=== PATIENT | female | born 1950 | race Caucasian/White ===

== ENCOUNTER 2020-05-24 13:53 | Inpatient (IN) | payer MEDICARE, OTHER ==
[~2020-05-24] VITALS: Ht 162.6 cm; Wt 88.0 kg
[~2020-05-24 13:53] MED LIST: ALLOPURINOL100 MG PO; CITALOPRAM HBR20 MG PO; COLCRYS0.6 MG PO; FOSINOPRIL SODI10 MG PO; LEXAPRO10 MG PO; METHYLPREDNISOLO4 M1 PO; SYNTHROID75 MCG PO; TYLENOL # 31 EA PO; ULTRAM50 MG PO
[2020-05-24] MEDS ORDERED: ONDANSETRON HCL INJ 2MG/ML 2ML 2 MG/ML VIAL IV STA (14:18)
[2020-05-24 14:28] LABS: BASOPHILS # (AUTO) 0.1 (0.0-0.1); BASOPHILS % 0.7 % (0.0-1.0); EOSINOPHILS # (AUTO) 0.3 (0.0-0.4); EOSINOPHILS % 4.5 % (0.0-6.0); HEMATOCRIT 43.7 % (34.2-44.1); HEMOGLOBIN 14.3 g/dL (12.0-16.0); LYMPHOCYTES # (AUTO) 2.3 (1.0-3.2); LYMPHOCYTES % 29.5 % (18.0-39.1); MEAN CORPUSCULAR HEMOGLOBIN 29.3 pg (28-32); MEAN CORPUSCULAR HGB CONC 32.7 g/dL (31-35); MEAN CORPUSCULAR VOLUME 89.5 fL (81-99); MONOCYTES # (AUTO) 0.6 (0.2-0.8); MONOCYTES % 7.7 % (4.4-11.3); NEUTROPHILS # (AUTO) 4.4 (2.1-6.9); NEUTROPHILS % 57.2 % (38.7-80.0); PLATELET COUNT 243 x10e3/uL (140-360); RED BLOOD COUNT 4.88 x10e6/uL (3.6-5.1); RED CELL DISTRIBUTION WIDTH 12.8 % (11.7-14.4)
[2020-05-24] MEDS ORDERED: MORPHINE SULFATE INJ 4 MG/ML INJ 1ML IV ONE (14:30)
[2020-05-24] MEDS ORDERED: MORPHINE SULFATE 5 MG/ML VIAL IV ONE (14:30)
--- NOTE | 2020-05-24 14:38 | Emergency Department Note ---
History of Present Illnes History of Present Illness Chief Complaint: Abdominal Complaints History of Present Illness This is a 70 year old female I've to the ED with epigastric and right upper quadrant abdominal pain for several days. Patient states she is having intermittent diarrhea but has not chronically because his metformin. . Chief Complaint Comment C/O EPIGASTRIC PAIN STARTED YESTERDAY SHE LAID ON HER SIDE THE PAIN AWAY THEN IT CAME BACK AGAIN TODAY DENIES N/V C/O DIARRHEA DENIES DYSURIA STATES PAIN FEELS LIKE A KNOT IN HER STOMACH STATES HX OF ANXIETY AND IS ANXIOUS DUE TO PAIN SEEN BY DR ZHENG Historian: Patient Arrival Mode: Car Cardiac Catheterization Technologist Required: No Onset (how long ago): day(s) Radiation: Reports non-radiation Onset quality: gradual Duration (how long): day(s) Timing of current episode: constant Progression: worsening Chronicity: new Exacerbating factors: none Treatments prior to arrival: none Past Medical/Family History Physician Review I have reviewed the patient's past medical and family history. Any updates have been documented here. Past Medical History Recent Fever: No Clinical Suspicion of Infectio: No New/Unexplained Change in Ment: No Past Medical History: Hypertension, Diabetes, Hypothyroidism, Anxiety Other Medical History: DEPRESSION HEP B Other Surgery: BREAST BIOPSY PARATHYROID TONSILLECTOMY Social History Physically hurt or threatened: No Other Last Tetanus: UNK Review of Systems Review of Systems Constitutional: Reports no symptoms EENTM: Reports no symptoms Cardiovascular: Reports no symptoms Respiratory: Reports no symptoms Gastrointestinal: Reports as per HPI, Reports abdominal pain, Reports diarrhea Genitourinary: Reports no symptoms Musculoskeletal: Reports no symptoms Integumentary: Reports no symptoms Neurological: Reports no symptoms Psychological: Reports no symptoms Endocrine: Reports no symptoms Hematological/Lymphatic: Reports no symptoms Physical Exam Related Data Allergies: Coded Allergies: No Known Allergies (Unverified , 05/27/16) Triage Vital Signs Vital Signs Date Time Temp Pulse Resp B/P (MAP) Pulse Ox O2 Delivery O2 Flow Rate FiO2 05/24/20 14:00 98.6 113 20 231/108 100 Room Air Vital signs reviewed: Yes Physical Exam CONSTITUTIONAL Constitutional: Present well-developed, Present well-nourished HENT HENT: Present normocephalic, Present atraumatic, Present oropharynx clear/moist, Present nose normal HENT L/R: Present left ext ear normal, Present right ext ear normal EYES Eyes: Reports PERRL, Reports conjunctivae normal NECK Neck: Present ROM normal PULMONARY Pulmonary: Present effort normal, Present breath sounds normal CARDIOVASCULAR Cardiovascular: Present regular rhythm, Present heart sounds normal, Present capillary refill normal, Present normal rate GASTROINTESTINAL Abdominal: Present soft, Present bowel sounds normal, Present tender GENITOURINARY Genitourinary: Present exam deferred SKIN Skin: Present warm, Present dry MUSCULOSKELETAL Musculoskeletal: Present ROM normal NEUROLOGICAL Neurological: Present alert, Present oriented x 3, Present no gross motor or sensory deficits PSYCHOLOGICAL Psychological: Present mood/affect normal, Present judgement normal Results Laboratory Laboratory Laboratory Tests Test 05/24/20 14:09 Lab results reviewed: Yes Laboratory comments Laboratory Tests Test 05/24/20 14:09 White Blood Count 7.63 x10e3/uL (4.8-10.8) Red Blood Count 4.88 x10e6/uL (3.6-5.1) Hemoglobin 14.3 g/dL (12.0-16.0) Hematocrit 43.7 % (34.2-44.1) Mean Corpuscular Volume 89.5 fL (81-99) Mean Corpuscular Hemoglobin 29.3 pg (28-32) Mean Corpuscular Hemoglobin Concent 32.7 g/dL (31-35) Red Cell Distribution Width 12.8 % (11.7-14.4) Platelet Count 243 x10e3/uL (140-360) Neutrophils (%) (Auto) 57.2 % (38.7-80.0) Lymphocytes (%) (Auto) 29.5 % (18.0-39.1) Monocytes (%) (Auto) 7.7 % (4.4-11.3) Eosinophils (%) (Auto) 4.5 % (0.0-6.0) Basophils (%) (Auto) 0.7 % (0.0-1.0) Neutrophils # (Auto) 4.4 (2.1-6.9) Lymphocytes # (Auto) 2.3 (1.0-3.2) Monocytes # (Auto) 0.6 (0.2-0.8) Eosinophils # (Auto) 0.3 (0.0-0.4) Basophils # (Auto) 0.1 (0.0-0.1) Absolute Immature Granulocyte (auto 0.03 x10e3/uL (0-0.1) Urine Color Yellow (YELLOW) Urine Clarity Clear (CLEAR) Urine pH 5.5 (5 - 7) Urine Specific [place] >=1.030 (1.010-1.025) Urine Protein Negative (NEGATIVE) Urine Glucose (UA) Negative (NEGATIVE) Urine Ketones Trace (NEGATIVE) Urine Blood Negative (NEGATIVE) Urine Nitrite Negative (NEGATIVE) Urine Bilirubin Negative (NEGATIVE) Urine Urobilinogen 0.2 mg/dL (0.2 - 1) Urine Leukocyte Esterase Negative (NEGATIVE) Urine RBC None /HPF (0-5) Urine WBC None /HPF (0-5) Urine Epithelial Cells Many /LPF (NONE) Urine Bacteria Few /HPF (NONE) Sodium Level 141 mmol/L (136-145) Potassium Level 3.7 mmol/L (3.5-5.1) Chloride Level 102 mmol/L (98-107) Carbon Dioxide Level 27 mmol/L (22-29) Anion Gap 15.7 mmol/L (8-16) Blood Urea Nitrogen 14 mg/dL (7-26) Creatinine 1.17 mg/dL (0.57-1.11) Estimat Glomerular Filtration Rate 45 ML/MIN (60-) BUN/Creatinine Ratio 12 (6-25) Glucose Level 189 mg/dL (74-118) Calcium Level 10.1 mg/dL (8.4-10.2) Total Bilirubin 0.4 mg/dL (0.2-1.2) Aspartate Amino Transf (AST/SGOT) 24 IU/L (5-34) Alanine Aminotransferase (ALT/SGPT) 24 IU/L (0-55) Alkaline Phosphatase 76 IU/L (40-150) Creatine Kinase 61 IU/L (29-168) Creatine Kinase MB 1.00 ng/mL (0-5.0) Troponin I 0.021 ng/mL (0-0.300) Total Protein 7.5 g/dL (6.5-8.1) Albumin 4.1 g/dL (3.5-5.0) Globulin 3.4 g/dL (2.3-3.5) Albumin/Globulin Ratio 1.2 (0.8-2.0) Lipase 39 U/L (8-78) Imaging Imaging results reviewed: Yes Impressions IMPRESSION: Anterior herniation of mesenteric fat and a loop of transverse colon into the right thorax. No associated bowel obstruction. Hepatic steatosis. Assessment & Plan Medical Decision Making MDM 70-year-old male arrives to the ED with epigastric and right upper quadrant abdominal pain. CT findings concerning for bowel herniation into the thorax. Dr. Conner from general surgery consult did, patient admitted. Assessment & Plan Final Impression: (1) Hernia Depart Disposition: ADMITTED Last Vital Signs Date Time Temp Pulse Resp B/P (MAP) Pulse Ox O2 Delivery O2 Flow Rate FiO2 05/24/20 14:00 98.6 113 20 231/108 100 Room Air Home Meds Reported Medications Colchicine (COLCRYS) 0.6 Mg Tablet, 0.6 MG PO BID, #30 TAB 02/19/17 Allopurinol (ALLOPURINOL) 100 Mg Tablet, 100 MG PO BID, #30 TAB 02/19/17 Escitalopram Oxalate (LEXAPRO) 10 Mg Tablet, 10 MG PO DAILY, #30 TAB 02/19/17 Levothyroxine Sodium (SYNTHROID) 75 Mcg Tab, 75 MCG PO DAILY, #30 TAB 05/27/16 Fosinopril Sodium (FOSINOPRIL SODIUM) 10 Mg Tablet, 10 MG PO DAILY, #30 TAB 05/27/16 Medications in the ED Morphine Sulfate 4 mg ONCE ONCE IV ; Start 05/24/20 at 14:30; Stop 05/24/20 at 14:31; Status UNV Ondansetron HCl 4 mg NOW STAT IV ; Start 05/24/20 at 14:18; Stop 05/24/20 at 14:24; Status DC Morphine Sulfate 4 mg ONCE ONCE IV ; Start 05/24/20 at 14:30; Stop 05/24/20 at 14:31 SALVADOR ZHENG, May 24, 2020 14:38
[2020-05-24 14:48] LABS: ALBUMIN 4.1 g/dL (3.5-5.0); ALBUMIN/GLOBULIN RATIO 1.2 (0.8-2.0); ANION GAP 15.7 mmol/L (8-16); CALCIUM 10.1 mg/dL (8.4-10.2); CREATININE, SERUM 1.17 mg/dL (0.57-1.11); POTASSIUM 3.7 mmol/L (3.5-5.1)
[2020-05-24] MEDS ORDERED: SODIUM CHLORIDE 0.9% 1000ML 1,000 ML IV STA (15:00)
[2020-05-24 15:52] LABS: CLARITY,URINE CLEAR (CLEAR); COLOR,URINE YELLOW (YELLOW); LEUKOCYTE ESTERASE ,URINE NEGATIVE (NEGATIVE); NITRITE,URINE NEGATIVE (NEGATIVE); PROTEIN,URINE DIPSTICK NEGATIVE (NEGATIVE)
[2020-05-24 15:53] LABS: BILIRUBIN,URINE NEGATIVE (NEGATIVE); KETONES,URINE TRACE (NEGATIVE); URINE UROBILINOGEN 0.2 mg/dL (0.2 - 1)
[2020-05-24 16:03] LABS: BACTERIA,URINE FEW /HPF; EPITHELIAL CELLS,URINE MANY /LPF
--- NOTE | 2020-05-24 16:28 | Diagnostic Imaging Report ---
EXAM: CT Chest, Abdomen and Pelvis WITH intravenous contrast INDICATION: Abdominal pain, chest pain COMPARISON: None. TECHNIQUE: The chest, abdomen and pelvis were scanned utilizing a multidetector helical scanner from the thoracic inlet to the pubic symphysis following administration of IV contrast. Coronal and sagittal reformations were obtained. Scan was performed during portal venous phase. IV CONTRAST: 100cc Isovue 370 ORAL CONTRAST: Water COMPLICATIONS: None RADIATION DOSE: Total DLP: 922 mGy*cm Dose modulation, iterative reconstruction, and/or weight based adjustment of the mA/kV was utilized to reduce the radiation dose to as low as reasonably achievable. FINDINGS: LINES/ TUBES: None. LUNGS AND AIRWAYS: The central airways are patent. No focal consolidation or pulmonary edema. Right middle lobe subsegmental atelectasis. Airways are normal. PLEURA: The pleural spaces are clear. HEART AND MEDIASTINUM: The thyroid gland is normal. No mediastinal, hilar or axillary lymphadenopathy. Scattered calcified mediastinal lymph nodes. The heart is normal in size.. There is no pericardial effusion. There is anterior herniation of mesenteric fat and a loop of transverse colon into the right thorax. HEPATOBILIARY: Hepatic steatosis. No focal liver lesion. No biliary ductal dilation. Unremarkable gallbladder. SPLEEN: No splenomegaly. PANCREAS: No focal masses or ductal dilatation. ADRENALS: No adrenal nodules. KIDNEYS/URETERS: No hydronephrosis or renal calculi. 2.1 cm left upper pole renal cyst. PELVIC ORGANS/BLADDER: Unremarkable. PERITONEUM / RETROPERITONEUM: No free air or fluid. LYMPH NODES: No lymphadenopathy. VESSELS: Unremarkable. GI TRACT: No abnormal bowel thickening. No bowel obstruction. Normal appendix. BONES AND SOFT TISSUES: No acute osseous injury. No suspicious lytic or blastic lesions. Tiny fat-containing ventral abdominal hernia. IMPRESSION: Anterior herniation of mesenteric fat and a loop of transverse colon into the right thorax. No associated bowel obstruction. Hepatic steatosis. Signed by: Ama Wheat MD on 05/24/2020 4:25 PM
[2020-05-24] MEDS ORDERED: SODIUM CHLORIDE 0.9% 50ML 50 ML ONE (17:36)
[2020-05-24] MEDS ORDERED: IOPAMIDOL 370 MG/ML 200 ML INFUS..BTL INJ ONE (17:36)
[2020-05-24] MEDS ORDERED: METFORMIN HCL500 M1 PO (19:21)
[2020-05-24] MEDS ORDERED: CITALOPRAM HBR10 MG PO (19:21)
[2020-05-24 19:37] VITALS: BP 174/109
[2020-05-24 19:38] VITALS: BP 174/109
[2020-05-24] MEDS ORDERED: VITAMIN D PO (21:39)
[2020-05-25] VITALS (8 sets, daily range): BP systolic 158–197; BP diastolic 88–114
--- NOTE | 2020-05-25 12:25 | NUR ---
patient has decided to have the surgery for hernia, informed Dr. Conner and he stated that he would put her on the schedule for tomorrow 05/26/20
--- NOTE | 2020-05-25 13:19 | Consultation ---
DATE OF CONSULTATION: 05/25/2020 CHIEF COMPLAINT: Substernal pain. HISTORY OF PRESENT ILLNESS: The patient is a 70-year-old female with 1-day history of pain in the upper epigastric substernal area with nausea. No vomiting. The patient describes previous episodes of intermittent discomfort in the area associated with nausea and diarrhea. The patient was found to have a diaphragmatic hernia in February 2019 with incarcerated transverse colon. PAST MEDICAL HISTORY: Positive for hypertension, diabetes, morbid obesity, depression, and gout. PAST SURGICAL HISTORY: Positive for parathyroidectomy and breast biopsy. ALLERGIES: SHE HAS NO DRUG ALLERGIES. SOCIAL HABITS: She does not smoke or drink at present time. REVIEW OF SYSTEMS: No chest pain, shortness of breath, cough, or fevers. PHYSICAL EXAMINATION: VITAL SIGNS: Stable. She is afebrile. She is awake, alert, in mild discomfort. HEENT: Sclerae anicteric. NECK: Supple. LUNGS: Clear. HEART: Regular rate and rhythm. ABDOMEN: Soft with some guarding in the epigastric region with no rebound, no mass. EXTREMITIES: No cyanosis or edema. LABORATORY DATA: White cell count is 7.6, hemoglobin of 14, and creatinine of 1.1. Liver function tests unremarkable. CT of the abdomen and chest revealed diaphragmatic hernia with mesenteric fat and a loop of transverse colon in the right thorax. ASSESSMENT: Symptomatic diaphragmatic hernia with incarcerated transverse colon. PLAN: Recommend repair of diaphragmatic hernia. Associated risks and benefits discussed. MD FREIDA Baptiste/MODMyke /[id number]
[2020-05-26] VITALS (8 sets, daily range): BP systolic 140–160; BP diastolic 72–91
[2020-05-26] MEDS: LEVOTHYROXINE SODIUM 75 MCG TAB PO SCH (06:00)
[2020-05-26] MEDS: CHOLECALCIFEROL 1,000 UNIT TAB PO SCH (06:41)
[2020-05-26] MEDS: ALLOPURINOL 100 MG TAB PO SCH (06:41)
[2020-05-26] MEDS: CITALOPRAM HYDROBROMIDE 20 MG TAB PO SCH (06:41)
[2020-05-26] MEDS: FOSINOPRIL SODIUM 10 MG TAB PO SCH (06:41)
[2020-05-26 06:50] LABS: BASOPHILS # (AUTO) 0.1 (0.0-0.1); BASOPHILS % 0.8 % (0.0-1.0); EOSINOPHILS # (AUTO) 0.5 (0.0-0.4); EOSINOPHILS % 4.9 % (0.0-6.0); HEMATOCRIT 46.2 % (34.2-44.1); LYMPHOCYTES % 41.4 % (18.0-39.1); MEAN CORPUSCULAR HEMOGLOBIN 29.2 pg (28-32); MEAN CORPUSCULAR HGB CONC 32.5 g/dL (31-35); MEAN CORPUSCULAR VOLUME 89.9 fL (81-99); MONOCYTES # (AUTO) 0.7 (0.2-0.8); NEUTROPHILS # (AUTO) 4.5 (2.1-6.9); NEUTROPHILS % 45.6 % (38.7-80.0); PLATELET COUNT 323 x10e3/uL (140-360); RED BLOOD COUNT 5.14 x10e6/uL (3.6-5.1); RED CELL DISTRIBUTION WIDTH 12.7 % (11.7-14.4)
[2020-05-26 07:09] LABS: INR 0.89; PROTHROMBIN TIME 12.5 seconds (11.9-14.5)
[2020-05-26 07:19] LABS: ALBUMIN 4.2 g/dL (3.5-5.0); ALBUMIN/GLOBULIN RATIO 1.2 (0.8-2.0); ANION GAP 17.2 mmol/L (8-16); CALCIUM 9.8 mg/dL (8.4-10.2); CREATININE, SERUM 1.12 mg/dL (0.57-1.11); POTASSIUM 4.2 mmol/L (3.5-5.1)
[2020-05-26] MEDS ORDERED: NON-FORMULARY MEDICATION ([Vitamin D] 2,000 UNITS) PO SCH (09:00)
[2020-05-26] MEDS ORDERED: NON-FORMULARY MEDICATION (Citalopram Hydrobromide (Citalopram Hbr) 10 MG) PO SCH (09:00)
--- NOTE | 2020-05-26 09:00 | NUR ---
Patient is sitting up in bed awake alert and oriented x3. She denies needing anything at this time. Call light in reach.
[2020-05-26] MEDS ORDERED: HEPARIN SOD/SOD CHLORIDE 1,000 ML ONE (12:47)
--- NOTE | 2020-05-26 13:10 | NUR ---
Patient left the floor to go to OR.
[2020-05-26] MEDS ORDERED: BUPIVACAINE 0.25%/EPI 30ML SDV INJ ONE ×2 (13:15→14:27)
[2020-05-26] MEDS ORDERED: HYDROMORPHONE 1MG/1ML INJ ONE (16:47)
--- NOTE | 2020-05-26 17:38 | Operative Report ---
DATE OF PROCEDURE: 05/26/2020 SURGEON: Donis Conner MD PREOPERATIVE DIAGNOSIS: Incarcerated Morgagni hernia. POSTOPERATIVE DIAGNOSIS: Incarcerated Morgagni hernia. OPERATIVE PROCEDURE: Laparoscopic repair of Morgagni hernia. ANESTHESIA: General. INDICATION: A 70-year-old female with history of chest pain, epigastric pain intermittently for many years with CT scan showing incarcerated transverse colon in a Morgagni hernia along with the omentum. The patient consented for laparoscopic repair. Attendant risks discussed. PROCEDURE FINDING: Incarceration of most of the omentum and a portion of the transverse colon and a Morgagni hernia in the right chest. DESCRIPTION OF PROCEDURE: The patient was brought to the OR, intubated. Abdomen was prepped with alcohol and draped in sterile fashion. A supraumbilical incision was made and the patient has umbilical hernia which is dissected out and use for an 11 mm port. Insufflation then began under direct vision. Other ports I placed in the right and left side of the lateral border of the rectus muscle just above the umbilicus. Laparoscopic examination revealed an incarcerated omentum and partial transverse colon as described on CT scan. Using gentle hand over hand traction, the transverse colon and omentum was delivered from the chest. We then proceeded to mobilize the fossa from ligament to the edge of the hernia defect to release it towards the apex of the liver to reduce tension. At this point, the hernia sac was removed from the chest using the LigaSure instrument and blunt and sharp dissection. The sac was removed entirely from the chest cavity. Hemostasis achieved. We have a defect approximately 6 cm oriented in transverse direction. At this point, repair was carried out with a small transverse incision was made below the right subcostal margins, two 3 cm in length, through which the 2-0 Ethibond was passed through the chest wall and rectus fascia using the Filippo Dai instrument. The 2-0 Ethibond suture further passed through the diaphragmatic edge approximately 1 cm away from the edge in a horizontal mattress fashion. The pledgets had been placed into the area of the horizontal mattress stitches to prevent cutting through the diaphragmatic muscle and the Filippo Dai is again used to retrieve the suture above the fascia. In this fashion for all the horizontal mattress of 2-0 Ethibond placed with pledgets to close the defect completely. We then proceeded to tie these horizontal mattress stitches down to the fascia snugly. Hemostasis achieved. We then proceeded to examine the omentum for bleeding point, which was then controlled with cauterization. Hemostasis achieved. A 19-Khmer Jakob drain placed in the Louise pouch and taken out through the right upper quadrant port site. All ports removed under direct vision. Fascia closed with 0 Vicryl at the umbilical region. Skin closed with subcuticular stitch. The patient was extubated and transported to recovery room in guarded condition. BLOOD LOSS: 50 mL from omental oozing. MD FREIDA Baptiste/LEROY /[id number]
--- NOTE | 2020-05-26 17:41 | Diagnostic Imaging Report ---
EXAMINATION: CHEST SINGLE (PORTABLE) INDICATION: ^LINE PLACEMENT ^[id number] ^[id number] COMPARISON: 07/24/2018. 05/24/2020 FINDINGS: TUBES and LINES: Right internal jugular central venous catheter with distal tip at the right atrial/superior vena cava junction. LUNGS: Linear opacity in the right lung base could be due to scarring/atelectasis. There is no evidence of pneumonia or pulmonary edema. PLEURA: No pleural effusion or pneumothorax. HEART AND MEDIASTINUM: The cardiomediastinal silhouette is unremarkable. BONES AND SOFT TISSUES: No acute osseous lesion. Soft tissues are unremarkable. UPPER ABDOMEN: No free air under the diaphragm. IMPRESSION: Right internal jugular central venous catheter with distal tip at the right atrial/superior vena cava junction. Linear opacity in the right lung base could be due to scarring/atelectasis Signed by: Dr. Tommie Gleason M.D. on 05/26/2020 5:37 PM
--- NOTE | 2020-05-26 18:01 | NUR ---
Patient is still off the floor or surgery,
--- NOTE | 2020-05-26 18:20 | NUR ---
Received report from Nieves in PACU. Patient will be coming back to room 213.
--- NOTE | 2020-05-26 18:45 | NUR ---
Paged Dr. Conner to see if there needs to be any post op antibiotics ordered. Awaiting call back.
--- NOTE | 2020-05-26 19:15 | NUR ---
Bedside shift report with morning nurse. Pt alert and oriented to name. Pt c/o severe RL neck pain, no edema or swelling noted. Pt refuses warm compress. Will admin prn pain med. Call light within reach. Bed low and locked.
[2020-05-26] MEDS: MORPHINE SULFATE INJ 4 MG/ML INJ 1ML IV PRN (19:35)
[2020-05-26] MEDS: ONDANSETRON HCL INJ 2MG/ML 2ML 2 MG/ML VIAL IV PRN (19:35)
--- NOTE | 2020-05-26 19:35 | NUR ---
prn Morphine admin for 9/10 RL neck pain.
[2020-05-26] MEDS ORDERED: ONDANSETRON HCL INJ 2MG/ML 2ML 2 MG/ML VIAL ONE (20:01)
[2020-05-26] MEDS ORDERED: PHENYLEPHRINE HCL 1% 10 MG/ML VIAL ONE (20:01)
[2020-05-26] MEDS ORDERED: PROPOFOL IV EMULSION 10 MG/ML 20 ML VIAL ONE (20:01)
[2020-05-26] MEDS ORDERED: LIDOCAINE HCL 2% LOCAL INJ 5 ML SDV VIAL INJ ONE (20:01)
[2020-05-26] MEDS ORDERED: SUCCINYLCHOLINE CHLORIDE 20 MG/ML 10ML VIAL ONE (20:01)
[2020-05-26] MEDS ORDERED: NEOSTIGMINE 1 MG/ML 10ML VIAL ONE (20:01)
[2020-05-26] MEDS ORDERED: SEVOFLURANE INHAL SOLN 250 ML PEN BTL ONE (20:01)
[2020-05-26] MEDS ORDERED: ETOMIDATE 2 MG/ML 10 ML INJ IV ONE (20:01)
[2020-05-26] MEDS ORDERED: EPHEDRINE SULFATE INJ 50 MG/ML VIAL ONE (20:01)
[2020-05-26] MEDS ORDERED: ACETAMINOPHEN 1000 MG/100 ML IV ONE (20:01)
[2020-05-26] MEDS ORDERED: METOPROLOL TARTRATE INJ 1 MG/ML VIAL ONE (20:01)
[2020-05-26] MEDS ORDERED: ROCURONIUM BROMIDE 10 MG/ML 5ML VIAL IV ONE (20:01)
[2020-05-26] MEDS ORDERED: DEXAMETHASONE SOD PHOS INJ 4 MG/ML VIAL ONE (20:01)
[2020-05-26] MEDS ORDERED: CEFAZOLIN SOD 1 GM VIAL ONE (20:01)
[2020-05-26] MEDS ORDERED: GLYCOPYRROLATE INJ 0.2 MG/ML VIAL ONE (20:01)
[2020-05-26] MEDS ORDERED: ESMOLOL HCL 100MG/10ML 10 MG/ML VIAL ONE (20:01)
[2020-05-26] MEDS: CEFAZOLIN SOD 1 GM/NS 50ML 50 ML IV SCH (20:50)
[2020-05-26] MEDS: HYDROMORPHONE 1MG/1ML INJ IV PRN (22:30)
[2020-05-27] VITALS: BP 134/71
[2020-05-27 04:00] VITALS: BP 144/74
[2020-05-27] MEDS: CEFAZOLIN SOD 1 GM/NS 50ML 50 ML IV SCH ×2 (05:00→13:09)
[2020-05-27] MEDS: MORPHINE SULFATE INJ 4 MG/ML INJ 1ML IV PRN (05:52)
[2020-05-27] MEDS: LEVOTHYROXINE SODIUM 75 MCG TAB PO SCH (06:00)
[2020-05-27 07:26] VITALS: BP 145/66
[2020-05-27] MEDS: CITALOPRAM HYDROBROMIDE 20 MG TAB PO SCH (09:00)
[2020-05-27] MEDS: FOSINOPRIL SODIUM 10 MG TAB PO SCH (09:00)
[2020-05-27] MEDS: CHOLECALCIFEROL 1,000 UNIT TAB PO SCH (09:00)
[2020-05-27] MEDS: ALLOPURINOL 100 MG TAB PO SCH (09:00)
[2020-05-27] MEDS: ONDANSETRON HCL INJ 2MG/ML 2ML 2 MG/ML VIAL IV PRN (10:20)
[2020-05-27] MEDS: HYDROMORPHONE 1MG/1ML INJ IV PRN ×2 (10:20→18:35)
[2020-05-27 11:25] VITALS: BP 147/67
[2020-05-27 12:50] LABS: BASOPHILS % 0.4 % (0.0-1.0); EOSINOPHILS # (AUTO) 0.1 (0.0-0.4); HEMATOCRIT 40.4 % (34.2-44.1); HEMOGLOBIN 12.9 g/dL (12.0-16.0); LYMPHOCYTES # (AUTO) 1.9 (1.0-3.2); LYMPHOCYTES % 16.7 % (18.0-39.1); MEAN CORPUSCULAR HEMOGLOBIN 29.5 pg (28-32); MEAN CORPUSCULAR HGB CONC 31.9 g/dL (31-35); MEAN CORPUSCULAR VOLUME 92.2 fL (81-99); MONOCYTES # (AUTO) 1.1 (0.2-0.8); MONOCYTES % 9.6 % (4.4-11.3); NEUTROPHILS % 71.9 % (38.7-80.0); PLATELET COUNT 245 x10e3/uL (140-360); RED BLOOD COUNT 4.38 x10e6/uL (3.6-5.1); RED CELL DISTRIBUTION WIDTH 12.9 % (11.7-14.4)
--- NOTE | 2020-05-27 13:25 | Diagnostic Imaging Report ---
EXAMINATION: CHEST SINGLE (PORTABLE) INDICATION: Cough COMPARISON: Chest radiograph 05/26/2020 FINDINGS: LINES/TUBES:Right IJ central venous catheter terminates in the superior vena cava. LUNGS:The lungs are well-inflated. No focal consolidation or pulmonary edema. PLEURA:No pleural effusion or pneumothorax. MEDIASTINUM:The cardiomediastinal silhouette appears normal in size and shape. BONES/SOFT TISSUES:No acute osseous injury. ABDOMEN:No free air under the diaphragm. IMPRESSION: No focal pneumonia or pulmonary edema. Signed by: Ama Wheat MD on 05/27/2020 1:22 PM
[2020-05-27] MEDS ORDERED: HYDROCODONE/APAP 7.5MG-325MG 1 EA TAB PO PRN (14:15)
[2020-05-27 15:43] VITALS: BP 143/65
--- NOTE | 2020-05-27 16:00 | NUR ---
[place] removed, patient is due to void
[2020-05-27] MEDS: DOCUSATE SODIUM 100 MG CAP PO SCH (17:04)
--- NOTE | 2020-05-27 19:15 | NUR ---
Received nursing shift report from morning nurse. Pt alert and oriented to name. Denies pain at this time. Bed low and locked. Call light within reach.
[2020-05-27 20:00] VITALS: BP 127/106
[2020-05-28] VITALS (9 sets, daily range): BP systolic 127–158; BP diastolic 57–106
[2020-05-28] MEDS: LEVOTHYROXINE SODIUM 75 MCG TAB PO SCH (06:00)
--- NOTE | 2020-05-28 07:00 | NUR ---
received report, pt is alert resting in bed, no s/s of distress. call light within reach and instructed pt to call RN for help
[2020-05-28] MEDS: FOSINOPRIL SODIUM 10 MG TAB PO SCH ×2 (07:41→09:05)
[2020-05-28] MEDS: CITALOPRAM HYDROBROMIDE 20 MG TAB PO SCH (07:41)
[2020-05-28] MEDS: ALLOPURINOL 100 MG TAB PO SCH (07:42)
[2020-05-28] MEDS: CHOLECALCIFEROL 1,000 UNIT TAB PO SCH (07:42)
[2020-05-28] MEDS: DOCUSATE SODIUM 100 MG CAP PO SCH ×2 (08:42→18:20)
[2020-05-28] MEDS: HYDROMORPHONE 1MG/1ML INJ IV PRN (10:26)
[2020-05-28] MEDS: ONDANSETRON HCL INJ 2MG/ML 2ML 2 MG/ML VIAL IV PRN (10:26)
--- NOTE | 2020-05-28 18:37 | NUR ---
pt stated to RN that she is anxious and she thinks that she is "going to ". patient is concerned about having phlegm, pt was encouraged to perform deep breathing exercises and to keep coughing
[2020-05-28] MEDS ORDERED: LORAZEPAM 0.5 MG TAB PO PRN (19:00)
--- NOTE | 2020-05-28 19:30 | NUR ---
Patient visited in room during nursing rounds. Patient alert and oriented x3. Ambulatory in room prn. S/P Hernia repair on 05/26/20 with 3 trocar sites with derma patel and band aid (C/D/I). LEATHA drain noted on right side of abdomen draining serosanguinous drainage. Pt appear calmer at this time. Awaiting on lab results and STAT portable CXR results. Call ivey within reach Will monitor pt closely.
--- NOTE | 2020-05-28 19:40 | Diagnostic Imaging Report ---
Examination: Single AP view of the chest. COMPARISON: 05/27/2020 INDICATION: Post surgery DISCUSSION: Lines/tubes: Right IJ catheter with tip over the SVC. Lungs: Elevated right hemidiaphragm, stable. No consolidation. Pleura: No effusion. Heart and mediastinum: The heart and the mediastinum are unremarkable. Calcified mediastinal lymph nodes. Bones and soft tissues: No acute bony abnormalities. IMPRESSION: 1. No acute cardiopulmonary abnormalities. Signed by: Dr. Christian Levin M.D. on 05/28/2020 7:37 PM
[2020-05-28] MEDS ORDERED: LORAZEPAM INJ 2 MG/ML VIAL IV ONE (19:45)
[2020-05-28 19:46] LABS: BASOPHILS % 0.4 % (0.0-1.0); EOSINOPHILS # (AUTO) 0.6 (0.0-0.4); EOSINOPHILS % 5.3 % (0.0-6.0); HEMATOCRIT 39.2 % (34.2-44.1); HEMOGLOBIN 12.7 g/dL (12.0-16.0); LYMPHOCYTES # (AUTO) 1.7 (1.0-3.2); LYMPHOCYTES % 15.6 % (18.0-39.1); MEAN CORPUSCULAR HEMOGLOBIN 29.5 pg (28-32); MEAN CORPUSCULAR HGB CONC 32.4 g/dL (31-35); MEAN CORPUSCULAR VOLUME 91.2 fL (81-99); MONOCYTES # (AUTO) 1.1 (0.2-0.8); MONOCYTES % 9.7 % (4.4-11.3); NEUTROPHILS # (AUTO) 7.5 (2.1-6.9); NEUTROPHILS % 68.6 % (38.7-80.0); PLATELET COUNT 221 x10e3/uL (140-360); RED CELL DISTRIBUTION WIDTH 13.1 % (11.7-14.4)
[2020-05-28 20:04] LABS: ANION GAP 14.9 mmol/L (8-16); BLOOD UREA NITROGEN 9 mg/dL (7-26); BUN/CREATININE RATIO 10 (6-25); CALCIUM 9.1 mg/dL (8.4-10.2); CARBON DIOXIDE 26 mmol/L (22-29); CHLORIDE 100 mmol/L (98-107); CREATININE, SERUM 0.87 mg/dL (0.57-1.11); EST GLOMERULAR FILTRATION RATE > 60 ML/MIN (60-); GLUCOSE 176 mg/dL (74-118); POTASSIUM 3.9 mmol/L (3.5-5.1); SODIUM 137 mmol/L (136-145)
[2020-05-29] VITALS (8 sets, daily range): BP systolic 136–150; BP diastolic 58–74
[2020-05-29] MEDS: LEVOTHYROXINE SODIUM 75 MCG TAB PO SCH (06:03)
--- NOTE | 2020-05-29 07:00 | NUR ---
RECEIVED PATIENT RESTING IN BED NO S/S OF DISTRESS. BED LOW, WHEELS LOCKED, SIDE RAILS X2. CALL LIGHT IN REACH WILL CONTINUE TO MONITOR PATIENT.
[2020-05-29] MEDS: CITALOPRAM HYDROBROMIDE 20 MG TAB PO SCH (08:24)
[2020-05-29] MEDS: FOSINOPRIL SODIUM 10 MG TAB PO SCH (08:24)
[2020-05-29] MEDS: ALLOPURINOL 100 MG TAB PO SCH (08:24)
[2020-05-29] MEDS: DOCUSATE SODIUM 100 MG CAP PO SCH ×2 (08:24→16:00)
[2020-05-29] MEDS: CHOLECALCIFEROL 1,000 UNIT TAB PO SCH (08:24)
--- NOTE | 2020-05-29 10:15 | NUR ---
RIGHT IJ DRESSING SITE BLEEDING. REMOVED DRESSING, CLEANSED SITE, AND APPLIED NEW CENTRAL LINE DRESSING. CALL LIGHT IN REACH WILL CONTINUE TO MONITOR.
--- NOTE | 2020-05-29 10:53 | NUR ---
LEFT FOREARM IV REMOVED DUE TO DISCOMFORT AND IRRITATION. CATHETER TIP INTACT ON REMOVAL AND PRESSURE DRESSING APPLIED.
--- NOTE | 2020-05-29 21:35 | NUR ---
PATIENT RESTING IN BED IN STABLE CONDITION, NO SIGNS OF DISTRESS NOTED. LEATHA DRAIN NOTED AND IS PATENT AND DRAINING 20CC. PATIENT VOICES PAIN AT A LEVEL OF 4 UPON MOVEMENT AND HAS NOT REQUESTED MEDICATION. BED IS IN LOWEST POSITION, BOTH SIDE RAILS ARE UP, CALL LIGHT IS WITHIN EASY REACH, WILL CONTINUE TO MONITOR.
[2020-05-30] VITALS (8 sets, daily range): BP systolic 120–166; BP diastolic 61–79
[2020-05-30] MEDS: LEVOTHYROXINE SODIUM 75 MCG TAB PO SCH (05:40)
[2020-05-30] MEDS: ALLOPURINOL 100 MG TAB PO SCH (08:39)
[2020-05-30] MEDS: CITALOPRAM HYDROBROMIDE 20 MG TAB PO SCH (08:39)
[2020-05-30] MEDS: FOSINOPRIL SODIUM 10 MG TAB PO SCH (08:39)
[2020-05-30] MEDS: DOCUSATE SODIUM 100 MG CAP PO SCH ×2 (08:39→15:54)
[2020-05-30] MEDS: CHOLECALCIFEROL 1,000 UNIT TAB PO SCH (08:39)
[2020-05-30] MEDS ORDERED: MAGNESIUM HYDROXIDE 30 ML UDC PO ONE (10:00)
--- NOTE | 2020-05-30 10:35 | NUR ---
right LEATHA drain discontinued as ordered. Patient tolerated well. Dry dressing and tape placed.
[2020-05-30] MEDS: METFORMIN HCL 500 MG TAB CR PO SCH ×2 (10:36→15:54)
--- NOTE | 2020-05-30 11:51 | NUR ---
Nutrition Screen Note RD Recommendation for Physician: - Rec adding ADA 1600 diet restriction Plan of Care: RD following, monitoring for tolerance and adequacy Nutrition reason for involvement: LOS Primary Diagnose(s): diaphragmatic hernia with incarcerated transverse colon s/p repair PMH: hypertension, diabetes, morbid obesity, depression, and gout Ht: 64in Wt: 194.06lb BMI: 33.3kg/m2 IBW: 120lb +/- 10% RD Assessment: (05/30) Chart reviewed. Labs and meds reviewed. 70yo F, who was admitted for hernia s/p repair on 05/26. Visited pt in the room. Pt reported good appetite. No complains of nausea or vomiting. No chewing or swallowing difficulty noted. Pt was given milk of magnesia today for constipation. Weight has been stable. Will continue to follow. Current Diet: GI soft diet Malnutrition Evaluation (05/30) The patient does not meet criteria for a specified degree of malnutrition at this time. Will re-evaluate at follow-up as appropriate. Diet Education Needs Assessment: Diet education indicated, discussed GI soft diet briefly with pt. All questions answered. Pt verbalized understanding. Nutrition Care Level: low Signed: Narcisa Vaughn, MS, RD, LD
--- NOTE | 2020-05-30 19:13 | NUR ---
Report given to oncoming nurse of patient's status. Resting in bed. AAOX3 to time, person, place, situation. Respirations even and unlabored Side rails upx2, call light within reach.
--- NOTE | 2020-05-30 21:20 | NUR ---
PATIENT RESTING IN BED IN STABLE CONDITION, NO SIGNS OF DISTRESS NOTED. LEATHA DRAIN HAS BEEN REMOVED AND PATIENT VOICES NO PAIN AT THIS TIME. BED IS IN LOWEST POSITION, BOTH SIDE RAILS ARE UP, CALL LIGHT IS WITHIN EASY REACH, WILL CONTINUE TO MONITOR.
[2020-05-31] VITALS: BP 158/52
[2020-05-31 04:00] VITALS: BP 147/60
[2020-05-31] MEDS: LEVOTHYROXINE SODIUM 75 MCG TAB PO SCH (06:09)
[2020-05-31 07:43] VITALS: BP 150/72
[2020-05-31 07:54] VITALS: BP 150/72
[2020-05-31] MEDS: CHOLECALCIFEROL 1,000 UNIT TAB PO SCH (08:23)
[2020-05-31] MEDS: DOCUSATE SODIUM 100 MG CAP PO SCH (08:23)
[2020-05-31] MEDS: ALLOPURINOL 100 MG TAB PO SCH (08:23)
[2020-05-31] MEDS: FOSINOPRIL SODIUM 10 MG TAB PO SCH (08:23)
[2020-05-31] MEDS: METFORMIN HCL 500 MG TAB CR PO SCH (08:23)
[2020-05-31] MEDS: CITALOPRAM HYDROBROMIDE 20 MG TAB PO SCH (08:23)
--- NOTE | 2020-05-31 10:53 | NUR ---
IMM letter delivered and explained to pt. She verbalized understanding and states she's ready to go home. Copy given to pt. Signed copy placed in chart.
[2020-05-31 12:03] VITALS: BP 106/52
--- NOTE | 2020-05-31 13:20 | NUR ---
Per "Dry dressing to Right abdomen daily and PRN" Dressing changed as ordered. Educated patient on dressing changes and signs of infection. Patient voiced understanding and returned demonstration
--- NOTE | 2020-05-31 14:25 | NUR ---
Right IJ discontinued. No signs of infiltration noted. 2x2 gauze and tape placed. Taken via wheelchair to personal car.AAOx4 to time, person, place, situation. Respirations even and unlabored. Denies pain. Dressing to right abdomen clean, dry, and intact. Discharge instructions and all personal belongings taken with patient. No rx available.
[2020-05-31] MEDS ORDERED: ONDANSETRON HCL 4 MG ORAL DISINTEGRATING TAB PO PRN (14:45)
== END 2020-05-31 14:25 | disposition home or self-care (01) | DRG 328 ==
LOC: ER 13:59 → ERHOLD 16:41 → MED/SURG2 19:37
PROC: 02HV33Z Insertion of Infusion Device into Superior Vena Cava, Percutaneous Approach (ICD-10-PCS; 2020-05-26)
PROC: 0BQT4ZZ Repair Diaphragm, Percutaneous Endoscopic Approach (ICD-10-PCS; principal; 2020-05-26 13:14)
DX: K44.0 Diaphragmatic hernia with obstruction, without gangrene (principal); E11.9 Type 2 diabetes mellitus without complications; I10 Essential (primary) hypertension; E03.9 Hypothyroidism, unspecified; F41.9 Anxiety disorder, unspecified; F32.9 Major depressive disorder, single episode, unspecified; R41.82 Altered mental status, unspecified; Z11.59 Encounter for screening for other viral diseases
CPT/HCPCS: 36415; 71045; 71260; 74177; 80048; 80053; 81001; 82550; 82553; 82948; 83690; 84484; 85025; 85610; 87086; 99284; J0330; J0690; J1100; J1170; J2001; J2060; J2270; J2370; J2405; J2710; J7030; Q9967; U0002

== ENCOUNTER → 2021-09-23 | Outpatient (CLI) | payer MEDICARE ==
[~2021-09-23] MED LIST changes: +CITALOPRAM HBR10 MG PO; +METFORMIN HCL500 M1 PO; +VITAMIN D PO
== END ==
LOC: RAD 11:36
DX: R60.9 Edema, unspecified (principal)
CPT/HCPCS: 93970

== ENCOUNTER 2024-08-11 07:05 | Emergency (ER) | payer MEDICARE ==
[~2024-08-11] VITALS: Ht 162.6 cm; Wt 88.0 kg
[2024-08-11 07:16] VITALS: TEMP 97.8
[2024-08-11] MEDS: HYDRALAZINE HCL 20 MG/ML VIAL IV STA (07:33)
[2024-08-11 07:41] LABS: BASOPHILS # (AUTO) 0.1 (0.0-0.1); BASOPHILS % 0.6 % (0.0-1.0); EOSINOPHILS # (AUTO) 0.4 (0.0-0.4); EOSINOPHILS % 5.5 % (0.0-6.0); HEMATOCRIT 44.7 % (34.2-44.1); HEMOGLOBIN 14.4 g/dL (12.0-16.0); LYMPHOCYTES # (AUTO) 2.3 (1.0-3.2); LYMPHOCYTES % 28.9 % (18.0-39.1); MEAN CORPUSCULAR HEMOGLOBIN 29.5 pg (28-32); MEAN CORPUSCULAR HGB CONC 32.2 g/dL (31-35); MEAN CORPUSCULAR VOLUME 91.6 fL (81-99); MONOCYTES # (AUTO) 0.5 (0.2-0.8); MONOCYTES % 6.8 % (4.4-11.3); NEUTROPHILS # (AUTO) 4.6 (2.1-6.9); NEUTROPHILS % 57.7 % (38.7-80.0); PLATELET COUNT 185 x10e3/uL (140-360); RED BLOOD COUNT 4.88 x10e6/uL (3.6-5.1); RED CELL DISTRIBUTION WIDTH 13.5 % (11.7-14.4); WHITE BLOOD COUNT 7.96 x10e3/uL (4.8-10.8)
[2024-08-11 08:05] LABS: ALBUMIN 4.1 g/dL (3.5-5.0); ALBUMIN/GLOBULIN RATIO 1.2 (0.8-2.0); ANION GAP 17.9 mmol/L (8-16); BILIRUBIN,TOTAL 0.4 mg/dL (0.2-1.2); CREATININE, SERUM 0.98 mg/dL (0.57-1.11); POTASSIUM 3.9 mmol/L (3.5-5.1); TOTAL PROTEIN 7.6 g/dL (6.5-8.1)
[2024-08-11] MEDS: LORAZEPAM INJ 2 MG/ML VIAL IV ONE (08:11)
[2024-08-11 09:30] VITALS: PULSE 96; RESP 18; O2SAT 98
[2024-08-11] MEDS ORDERED: CLONIDINE HCL0.1 MG PO (10:02)
[2024-08-11 10:16] VITALS: BP 130/66; PULSE 94; RESP 16; TEMP 98.2
== END 2024-08-11 10:07 | disposition home or self-care (01) ==
LOC: ER 07:07
DX: R42 Dizziness and giddiness (principal); I16.0 Hypertensive urgency; R55 Syncope and collapse; I10 Essential (primary) hypertension; E11.65 Type 2 diabetes mellitus with hyperglycemia; R94.31 Abnormal electrocardiogram [ECG] [EKG]
CPT/HCPCS: 36415; 71045; 80053; 84484; 85025; 93005; 99284; J0360; J2060

== ENCOUNTER 2024-12-05 15:34 | Emergency (ER) | payer MEDICARE ==
[~2024-12-05] VITALS: Ht 162.6 cm; Wt 88.0 kg
[~2024-12-05 15:34] MED LIST changes: +CLONIDINE HCL0.1 MG PO
[2024-12-05 15:42] VITALS: PULSE 96; RESP 16; TEMP 98.2
[2024-12-05] MEDS: MECLIZINE HCL 12.5 MG TAB PO STA (17:24)
[2024-12-05] MEDS: SODIUM CHLORIDE 0.9% 500ML 500 ML IV ONE (17:26)
[2024-12-05] MEDS: DIAZEPAM INJ 5 MG/ML 2 ML IV STA (20:31)
[2024-12-05 20:32] LABS: BASOPHILS # (AUTO) 0.1 (0.0-0.1); BASOPHILS % 0.6 % (0.0-1.0); EOSINOPHILS # (AUTO) 0.4 (0.0-0.4); EOSINOPHILS % 4.9 % (0.0-6.0); HEMATOCRIT 40.5 % (34.2-44.1); HEMOGLOBIN 13.3 g/dL (12.0-16.0); LYMPHOCYTES # (AUTO) 2.4 (1.0-3.2); LYMPHOCYTES % 27.4 % (18.0-39.1); MEAN CORPUSCULAR HGB CONC 32.8 g/dL (31-35); MEAN CORPUSCULAR VOLUME 88.4 fL (81-99); MONOCYTES # (AUTO) 0.6 (0.2-0.8); MONOCYTES % 6.6 % (4.4-11.3); NEUTROPHILS # (AUTO) 5.2 (2.1-6.9); PLATELET COUNT 205 x10e3/uL (140-360); RED BLOOD COUNT 4.58 x10e6/uL (3.6-5.1); RED CELL DISTRIBUTION WIDTH 13.6 % (11.7-14.4); WHITE BLOOD COUNT 8.64 x10e3/uL (4.8-10.8)
[2024-12-05 20:42] LABS: INR 0.86; PROTHROMBIN TIME 12.3 seconds (11.9-14.5)
[2024-12-05 20:52] LABS: ALBUMIN 4.2 g/dL (3.5-5.0); ALBUMIN/GLOBULIN RATIO 1.3 (0.8-2.0); ANION GAP 20.8 mmol/L (8-16); BILIRUBIN,TOTAL 0.3 mg/dL (0.2-1.2); CALCIUM 9.9 mg/dL (8.4-10.2); CREATININE, SERUM 1.19 mg/dL (0.57-1.11); POTASSIUM 3.8 mmol/L (3.5-5.1); TOTAL PROTEIN 7.5 g/dL (6.5-8.1)
[2024-12-05 20:59] LABS: TROPONIN I 0.027 ng/mL (0-0.300)
[2024-12-05] MEDS ORDERED: MECLIZINE HCL12.5 MG PO (21:34)
[2024-12-05] MEDS ORDERED: VALIUM2 MG PO (21:34)
[2024-12-05 21:49] VITALS: BP 121/68; PULSE 71; RESP 26; TEMP 98.6; O2SAT 98
== END 2024-12-05 21:50 | disposition home or self-care (01) ==
LOC: ER 16:09
DX: R42 Dizziness and giddiness (principal); I10 Essential (primary) hypertension; E11.65 Type 2 diabetes mellitus with hyperglycemia; E03.9 Hypothyroidism, unspecified; K76.9 Liver disease, unspecified; M10.9 Gout, unspecified; R53.81 Other malaise; F41.9 Anxiety disorder, unspecified; F32.A Depression, unspecified; R94.31 Abnormal electrocardiogram [ECG] [EKG]
CPT/HCPCS: 36415; 70450; 71045; 80053; 82550; 83735; 84484; 85025; 85610; 85730; 93005; 99284; J3360; J7040; J8597

== ENCOUNTER 2025-02-11 23:08 | Emergency (ER) | payer MEDICARE ==
[~2025-02-11] VITALS: Ht 162.6 cm; Wt 88.5 kg
[~2025-02-11 23:08] MED LIST changes: +MECLIZINE HCL12.5 MG PO; +VALIUM2 MG PO
[2025-02-11 23:38] VITALS: TEMP 98.8
[2025-02-12] MEDS: MECLIZINE HCL 12.5 MG TAB PO ONE (00:21)
[2025-02-12] MEDS: HYDRALAZINE HCL 20 MG/ML VIAL IV STA (00:22)
[2025-02-12] MEDS: INSULIN REGULAR, HUMAN 100 UNIT/1 ML SQ ONE (00:23)
[2025-02-12 00:36] LABS: BASOPHILS # (AUTO) 0.1 (0.0-0.1); BASOPHILS % 0.8 % (0.0-1.0); EOSINOPHILS # (AUTO) 0.4 (0.0-0.4); EOSINOPHILS % 5.3 % (0.0-6.0); HEMATOCRIT 41.3 % (34.2-44.1); HEMOGLOBIN 13.8 g/dL (12.0-16.0); LYMPHOCYTES # (AUTO) 2.5 (1.0-3.2); LYMPHOCYTES % 31.5 % (18.0-39.1); MEAN CORPUSCULAR HEMOGLOBIN 29.5 pg (28-32); MEAN CORPUSCULAR HGB CONC 33.4 g/dL (31-35); MEAN CORPUSCULAR VOLUME 88.2 fL (81-99); MONOCYTES # (AUTO) 0.7 (0.2-0.8); MONOCYTES % 8.8 % (4.4-11.3); NEUTROPHILS # (AUTO) 4.2 (2.1-6.9); NEUTROPHILS % 53.1 % (38.7-80.0); PLATELET COUNT 203 x10e3/uL (140-360); RED BLOOD COUNT 4.68 x10e6/uL (3.6-5.1); RED CELL DISTRIBUTION WIDTH 13.4 % (11.7-14.4); WHITE BLOOD COUNT 7.88 x10e3/uL (4.8-10.8)
[2025-02-12] MEDS: ONDANSETRON HCL INJ 2MG/ML 2ML 2 MG/ML VIAL IV STA (00:58)
[2025-02-12 01:01] LABS: ALBUMIN 4.1 g/dL (3.5-5.0); ALBUMIN/GLOBULIN RATIO 1.3 (0.8-2.0); BILIRUBIN,TOTAL 0.2 mg/dL (0.2-1.2); CALCIUM 9.8 mg/dL (8.4-10.2); CREATININE, SERUM 1.06 mg/dL (0.57-1.11); TOTAL PROTEIN 7.2 g/dL (6.5-8.1)
[2025-02-12 02:00] VITALS: PULSE 91; RESP 16
[2025-02-12] MEDS: SODIUM CHLORIDE 0.9% 500ML 500 ML IV ONE (02:07)
[2025-02-12 03:08] VITALS: BP 153/89; PULSE 91; RESP 22; TEMP 97.7; O2SAT 97
== END 2025-02-12 03:12 | disposition home or self-care (01) ==
LOC: ER 23:54
DX: I16.0 Hypertensive urgency (principal); E11.65 Type 2 diabetes mellitus with hyperglycemia; E03.9 Hypothyroidism, unspecified; K76.9 Liver disease, unspecified; F41.9 Anxiety disorder, unspecified; F32.A Depression, unspecified; M10.9 Gout, unspecified; R94.31 Abnormal electrocardiogram [ECG] [EKG]
CPT/HCPCS: 36415; 70450; 71045; 80053; 82948; 83880; 84484; 85025; 93005; 99284; J0360; J2405; J2470; J7040; J8597